=== PATIENT | male | born 1960 | race Hispanic/Latino ===

== ENCOUNTER 2023-05-13 15:04 | Outpatient (CLI) | payer BC | END 2023-05-13 15:05 | disposition home or self-care (01) | LOC: BICRAD 15:04 | PROVIDERS: ATTEND Nurse Practitioner | DX: M79.671 Pain in right foot (principal) ==

== ENCOUNTER 2023-11-27 09:08 | Emergency (ER) | payer BC ==
[2023-11-27] MEDS ORDERED: Iopamidol 370 76% 100 ML VIAL ONE (09:16)
[2023-11-27] MEDS ORDERED: Ketorolac Tromethamine 30 MG (1 mL) VIAL ONE (09:33)
[2023-11-27] MEDS ORDERED: Ondansetron PF 4 MG/2 ML Vial ONE (09:33)
[2023-11-27 09:48] LABS: #Basophils 0.04 10x3/uL (0.0-0.2); %Basophils 0.3 % (0.0-1.0); %Eosinophils 2.4 % (0.0-10.0); %Lymphocytes 9.3 % (21.0-51.0); %Neutrophils 78.7 % (42.0-75.0); Hematocrit 43.2 % (42.0-52.0); Hemoglobin 15.2 g/dL (14.0-18.0); Mean Corpuscular HGB CONC 35.2 g/dL (32.0-36.0); Mean Corpuscular Hemoglobin 32.3 pg (27.0-31.0); Mean Corpuscular Volume 91.7 fL (78.0-98.0); Mean Platelet Volume 11.3 fL (7.4-10.4); Platelet Count 146 10x3/uL (130-400); Red Blood Cell (RBC) Count 4.71 mill/uL (4.70-6.10)
[2023-11-27 10:05] LABS: ALT (SGPT) 29 U/L (8-55); AST (SGOT) 29 U/L (5-34); Albumin 3.5 g/dL (3.4-4.8); Alkaline Phosphatase 71 U/L (40-110); Anion Gap 11 mmol/L (10-20); BUN (Urea Nitrogen) 10 mg/dL (8.4-25.7); Bilirubin, Total 1.2 mg/dL (0.2-1.2); Calc. Creatinine Clearance 0 mL/min (70-130); Calcium 8.9 mg/dL (7.8-10.44); Carbon Dioxide 25 mmol/L (23-31); Chloride 102 mmol/L (98-107); Estimated GFR 99; Globulin 3.9 g/dL (2.4-3.5); Glucose 123 mg/dL (80-115); Lipase 16 U/L (8-78); Protein, Total 7.4 g/dL (5.8-8.1); Sodium 134 mmol/L (136-145)
[2023-11-27 10:12] LABS: Bacteria/HPF None Seen HPF (None Seen); Bilirubin Negative (Negative); Blood, Urine Negative (Negative); CAUTI Indications for Culture Pelvic or flank pain; Clarity Clear (Clear); Glucose, Urine (Dipstick) 70 mg/dL (Negative); Ketone, Urine Negative (Negative); Leukocyte Negative Leu/uL (Negative); Nitrite Negative (Negative); Protein, Urine (Dipstick) Negative (Neg-Trace); RBC/HPF 0-3 HPF (0-3); Specific Gravity, Urine 1.011 (1.002-1.036); Squamous Epithelial None Seen HPF (0-3); WBC/HPF None Seen HPF (0-3)
[2023-11-27 10:30] LABS: Urine Culture Reflex No No
[2023-11-27] MEDS ORDERED: Amoxicillin/Potassium Clav 875 MG TAB ONE (11:44)
== END 2023-11-27 12:00 | disposition home or self-care (01) ==
LOC: ERS 09:08
DX: K57.32 Diverticulitis of large intestine without perforation or abscess without bleeding (principal); Z55.0 Illiteracy and low-level literacy
CPT/HCPCS: 36415; 74177; 80053; 81001; 83605; 83690; 85025; 96374; 96375; J1885; J2405; Q9967